=== PATIENT | female | born 1985 | race Caucasian/White ===

== ENCOUNTER 2017-01-13 14:09 | Emergency (ER) | payer MEDICAID ==
[2017-01-13 14:29] VITALS: BP 145/93; PULSE 83; RESP 16; TEMP 98.2; O2SAT 98
[2017-01-13] MEDS ORDERED: Naproxen 550 mg Tab PO STA (14:37)
[2017-01-13] MEDS ORDERED: Naproxen 550 mg Tab PO ONE (14:45)
--- NOTE | 2017-01-13 15:06 | C.PDOC ---
History Of Present Illness 31 y/o female presents to ED with complaints of left knee pain since this morning. Patient states she was getting into car when she heard a crack and reports pain is worse with movement. Patient denies change in sensation, direct trauma, weakness, numbness, other injuries or any other complaints at this time. Time Seen by Provider: 01/13/17 14:23 Chief Complaint (Nursing): Lower Extremity Problem/Injury History Per: Patient History/Exam Limitations: no limitations Onset/Duration Of Symptoms: Hrs Current Symptoms Are (Timing): Still Present Past Medical History Reviewed: Historical Data, Nursing Documentation, Vital Signs Vital Signs: Last Vital Signs Temp 98.2 F 01/13/17 14:26 Pulse 83 01/13/17 14:26 Resp 16 01/13/17 14:26 BP 145/93 H 01/13/17 14:26 Pulse Ox 98 01/13/17 16:14 - Medical History PMH: Anxiety, Depression Family History: States: Unknown Family Hx - Social History Hx Tobacco Use: Yes Hx Alcohol Use: No Hx Substance Use: No - Immunization History Hx Tetanus Toxoid Vaccination: No Hx Influenza Vaccination: Yes Hx Pneumococcal Vaccination: No Review Of Systems Except As Marked, All Systems Reviewed And Found Negative. Musculoskeletal: Positive for: Leg Pain Skin: Negative for: Rash Neurological: Negative for: Weakness, Numbness Physical Exam - Physical Exam Appears: Non-toxic, No Acute Distress Skin: Normal Color, Warm, Dry, No Rash Head: Atraumatic, Normacephalic Eye(s): bilateral: Normal Inspection, EOMI Nose: Normal Oral Mucosa: Moist Neck: Normal ROM Chest: Symmetrical Respiratory: No Accessory Muscle Use Extremity: Normal ROM, Tenderness (To medial aspect of left knee), No Calf Tenderness, Capillary Refill (<2 seconds), No Deformity, No Swelling Extremity: Bilateral: Normal ROM Pulses: Left Dorsalis Pedis: Normal, Right Dorsalis Pedis: Normal Neurological/Psych: Oriented x3, Normal Speech, Normal Motor, Normal Sensation ED Course And Treatment O2 Sat by Pulse Oximetry: 98 (RA) Pulse Ox Interpretation: Normal Progress Note: Xray of left knee. Knee brace was applied by RN and instructed to follow up with Ortho in 1-2 days. Reevaluation Time: 14:50 (On reassessment, patient is resting comfortably, and is in no acute distress. Patient was instructed to follow up with physician/ clinic in 1-2 days for further evaluation.) Reassessment Condition: Improved Disposition - Disposition Referrals: Zoran Diego III, MD [Staff Provider] - Disposition: HOME/ ROUTINE Disposition Time: 15:05 Condition: STABLE Additional Instructions: Follow up with primary medical doctor in 1-3 days without fail for further evaluation. Take medications as prescribed. Return to the emergency department at any time if symptoms persist or worsen. Prescriptions: Naproxen [Naprosyn] 1 tab PO BID PRN #20 tab PRN Reason: Pain Instructions: Knee Sprain (ED) Forms: stickK (Nepalese) - Clinical Impression Clinical Impression: Knee sprain - Scribe Statement The provider has reviewed the documentation as recorded by the Jessica Francis All medical record entries made by the Johnnieibkati were at my direction and personally dictated by me. I have reviewed the chart and agree that the record accurately reflects my personal performance of the history, physical exam, medical decision making, and the department course for this patient. I have also personally directed, reviewed, and agree with the discharge instructions and disposition.
--- NOTE | 2017-01-13 15:07 | RAD ---
PROCEDURE: Left Knee Radiographs. HISTORY: COMPARISON: None available. FINDINGS: BONES: No acute displaced fracture. JOINTS: No dislocation. JOINT EFFUSION: No significant joint effusion. OTHER FINDINGS: None. IMPRESSION: No acute displaced fracture, dislocation, or significant joint effusion identified. If symptoms persist, or if there is continued clinical concern, x-ray follow-up in 7-10 days should be considered.
== END 2017-01-13 15:14 | disposition home or self-care (01) ==
LOC: C.ER 14:09
DX: S83.92XA Sprain of unspecified site of left knee, initial encounter (principal); X50.0XXA Overexertion from strenuous movement or load, initial encounter; Y93.89 Activity, other specified; Y92.89 Other specified places as the place of occurrence of the external cause

== ENCOUNTER 2017-11-11 11:41 | Emergency (ER) | payer MEDICAID ==
[2017-11-11 11:47] VITALS: TEMP 98.5
[2017-11-11] MEDS ORDERED: Sodium Chloride 0.9% 1,000 ML IV ONE (12:19)
--- NOTE | 2017-11-11 12:42 | C.PDOC ---
History Of Present Illness <NikoAshtyn L - Last Filed: 11/11/17 17:21> <Leonardo Koroma - Last Filed: 11/13/17 14:45> 32 y/o female A3 currently 7 weeks presents to ED with complaints of abdominal pain, back pain and intermittent vaginal bleeding for 2 weeks worse for 2 days. Patient states she had an Ultrasound at 5 weeks and no pole was noted, denies fever, chills, vomiting or any other complaints at this time. LMP 09/22/17 (Ashtyn Pope) History Per: Patient History/Exam Limitations: no limitations Onset/Duration Of Symptoms: Days Current Symptoms Are (Timing): Still Present Quality Of Discomfort: "Pain" <Ashtyn Pope - Last Filed: 11/11/17 17:21> <Leonardo Koroma - Last Filed: 11/13/17 14:45> Time Seen by Provider: 11/11/17 12:05 Chief Complaint (Nursing): Female Genitourinary Past Medical History Reviewed: Historical Data, Nursing Documentation, Vital Signs - Medical History PMH: Anxiety, Depression Surgical History: No Surg Hx Family History: States: No Known Family Hx - Social History Hx Tobacco Use: Yes Hx Alcohol Use: No Hx Substance Use: No - Immunization History Hx Tetanus Toxoid Vaccination: No Hx Influenza Vaccination: Yes Hx Pneumococcal Vaccination: No <NikoErnieAshtyn L - Last Filed: 11/11/17 17:21> Vital Signs: Last Vital Signs Temp 98.5 F 11/11/17 11:44 Pulse 71 11/11/17 14:50 Resp 18 11/11/17 15:37 BP 115/79 11/11/17 14:50 Pulse Ox 98 11/11/17 17:24 Review Of Systems Constitutional: Negative for: Fever, Chills Gastrointestinal: Positive for: Abdominal Pain. Negative for: Nausea, Vomiting Genitourinary: Positive for: Vaginal Bleeding. Negative for: Dysuria Musculoskeletal: Positive for: Back Pain Neurological: Negative for: Weakness, Numbness <NikoAshtyn L - Last Filed: 11/11/17 17:21> Physical Exam - Physical Exam Appears: Non-toxic, No Acute Distress Skin: Warm, Dry, No Rash Head: Atraumatic, Normacephalic Eye(s): bilateral: Normal Inspection Oral Mucosa: Moist Neck: Normal ROM, Supple Cardiovascular: Rhythm Regular Respiratory: Normal Breath Sounds, No Rales, No Rhonchi, No Wheezing Gastrointestinal/Abdominal: Soft, No Tenderness, No Guarding, No Rebound Back: No CVA Tenderness, No Paraspinal Tenderness Neurological/Psych: Oriented x3, Normal Speech, Normal Cognition <NikoAshtyn L - Last Filed: 11/11/17 17:21> ED Course And Treatment - Laboratory Results Result Diagrams: 11/11/17 12:43 11/11/17 12:43 O2 Sat by Pulse Oximetry: 98 (RA) Pulse Ox Interpretation: Normal - CT Scan/US OB transvaginal US Other Rad Studies (CT/US): Read By Radiologist, Radiology Report Reviewed CT/US Interpretation: Pelvic ultrasound. History: Pelvic pain and bleeding. Comparison: None available. Technique: Multi-echo multiplanar sequences were performed through the pelvis utilizing transvaginal technique. Findings: Uterus: 9.8 x 5.9 x 6.7 centimeters. Heterogeneous echotexture. Anteverted. Cervix measures 4.3 centimeters. Intrauterine with intrauterine gestational sac measuring 3.3 centimeters corresponding to a gestational age of 8 weeks and 3 days. Yolk sac identified. [place]-rump length measures 1.4 centimeters corresponding to a gestational age of 7 weeks and 5 days. heart rate of 153 beats per minute. No free fluid in the pelvic cul-de-sac. Right ovary: 2.4 x 1.8 x 1.7 centimeters. Normal flow. Left ovary: 2.4 x 1.6 x 2.3 centimeters. Normal flow. Impression: Intrauterine corresponding to a gestational age of approximately 7 weeks and 5 days by crown- rump length of 1.4 centimeters. heart rate of 153 beats per minute. Limited 1st trimester ultrasound for viability purposes only. Continued interval followup with serial ultrasound, serial HCG levels, and gynecological consultation would be helpful if clinically indicated. <Ashtyn Pope - Last Filed: 11/11/17 17:21> - Laboratory Results Result Diagrams: 11/11/17 12:43 11/11/17 12:43 <Leonardo Koroma - Last Filed: 11/13/17 14:45> Medical Decision Making: Impression: patient with pain and spotting Plan: * Beta HCG * Blood work * UA * IV fluids * Trans vaginal US Progress: Labs reviewed. BHCG [place] [address] and Ultrasound shows Intrauterine corresponding to a gestational age of approximately 7 weeks and 5 days by crown-rump length of 1.4 centimeters. heart rate of 153 beats per minute. Patient remained afebrile laying comfortably on stretcher and in no distress. She reports no pain on reassessment. Vital signs stable. Discussed results of labs and ultrasound findings with the patient and provide copy of the results. Patient feels comfortable going home and will be discharged. 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 Instructed to return to ER if symptoms worsen or new symptoms arise. (Ashtyn Pope) Disposition Counseled Patient/Family Regarding: Diagnosis, Need For Followup - Disposition Disposition Time: 15:25 - POA Present On Arrival: None <Ashtyn Pope - Last Filed: 11/11/17 17:21> <Leonardo Koroma - Last Filed: 11/13/17 14:45> - [facility]position [facility] Disposition: HOME/ ROUTINE Condition: GOOD Additional Instructions: Your BHCG [place] [address] and Ultrasound shows Intrauterine corresponding to a gestational age of approximately 7 weeks and 5 days with heart rate of 153 beats per minute. Follow up with your ob.transformation coach in one week Instructions: Threatened Miscarriage (DC) Forms: gridComm (Luxembourger) - Clinical Impression Clinical Impression: Threatened - PA / HEAT AND FROST INSULATOR / Resident Statement MD/DO has reviewed & agrees with the documentation as recorded. - Scribe Statement The provider has reviewed the documentation as recorded by the Scribe <Ashtyn Pope - Last Filed: 11/11/17 17:21> <Leonardo Koroma - Last Filed: 11/13/17 14:45> - Scribe Statement Becky Francis All medical record entries made by the Scribe were at my direction and personally dictated by me. I have reviewed the chart and agree that the record accurately reflects my personal performance of the history, physical exam, medical decision making, and the department course for this patient. I have also personally directed, reviewed, and agree with the discharge instructions and disposition. (Ashtyn Pope)
[2017-11-11 12:48] LABS: BASO # 0.1 K/uL (0.0-0.2); BASO % 0.5 % (0.0-2.0); EOS # 0.3 K/uL (0.0-0.7); EOS % 2.5 % (0.0-4.0); HEMOGLOBIN 12.8 g/dL (11.0-16.0); LYMPH # 2.2 K/uL (1.0-4.3); MEAN CELL VOLUME 93.8 fL (81.0-99.0); MEAN CORPUSCULAR HEMOGLOBIN 32.7 pg (27.0-31.0); MEAN CORPUSCULAR HGB CONC 34.8 g/dL (33.0-37.0); MONO % 8.5 % (0.0-10.0); NEUT # 7.7 K/uL (1.8-7.0); NEUT % 68.5 % (50.0-75.0); RBC 3.92 Mil/uL (3.80-5.20); RED CELL DISTRIBUTION WIDTH 12.9 % (11.5-14.5); WHITE BLOOD COUNT 11.2 K/uL (4.8-10.8)
[2017-11-11] MEDS ORDERED: Sodium Chloride 0.9% 1,000 ML ONE (12:48)
[2017-11-11 12:54] LABS: HCG,QUALITATIVE URINE POSITIVE (NEGATIVE)
[2017-11-11 12:58] LABS: SQUAMOUS EPITHIAL 2 /hpf (0-5); URINE AMORPHOUS SEDIMENT FEW /ul (<OCC); URINE BILIRUBIN NEGATIVE (NEGATIVE); URINE BLOOD NEGATIVE (NEGATIVE); URINE CLARITY Hazy (Clear); URINE COLOR Yellow (YELLOW); URINE GLUCOSE (UA) NORMAL (Normal); URINE LEUKOCYTE ESTERASE TRACE Leu/uL (Negative); URINE PROTEIN NEGATIVE (NEGATIVE); URINE UROBILINOGEN NORMAL mg/dL (0.2-1.0)
[2017-11-11 13:02] LABS: ALB/GLOB RATIO 1.3 (1.0-2.1); ALBUMIN 3.7 g/dL (3.5-5.0); ALT/SGPT 19 U/L (9-52); AST/SGOT 25 U/L (14-36); BLOOD UREA NITROGEN 6 mg/dL (7-17); CALCIUM 8.6 mg/dl (8.6-10.4); GFR AFRICAN-AMERICAN > 60; GFR NON-AFRICAN AMERICAN > 60
[2017-11-11 14:50] VITALS: BP 115/79; PULSE 71; RESP 18
--- NOTE | 2017-11-11 15:00 | US ---
Pelvic ultrasound History: Pelvic pain and bleeding. Comparison: None available. Technique: Multi-echo multiplanar sequences were performed through the pelvis utilizing transvaginal technique. Findings: Uterus: 9.8 x 5.9 x 6.7 centimeters. Heterogeneous echotexture. Anteverted. Cervix measures 4.3 centimeters. Intrauterine with intrauterine gestational sac measuring 3.3 centimeters corresponding to a gestational age of 8 weeks and 3 days. Yolk sac identified. [place]-rump length measures 1.4 centimeters corresponding to a gestational age of 7 weeks and 5 days. heart rate of 153 beats per minute. No free fluid in the pelvic cul-de-sac. Right ovary: 2.4 x 1.8 x 1.7 centimeters. Normal flow. Left ovary: 2.4 x 1.6 x 2.3 centimeters. Normal flow. Impression: Intrauterine corresponding to a gestational age of approximately 7 weeks and 5 days by crown-rump length of 1.4 centimeters. heart rate of 153 beats per minute. Limited 1st trimester ultrasound for viability purposes only. Continued interval followup with serial ultrasound, serial HCG levels, and gynecological consultation would be helpful if clinically indicated.
[2017-11-11 15:22] VITALS: O2SAT 98
== END 2017-11-11 15:40 | disposition home or self-care (01) ==
LOC: C.ER 11:41
DX: O20.0 Threatened abortion (principal); Z3A.01 Less than 8 weeks gestation of pregnancy
CPT/HCPCS: 76817; 80053; 81001; 84702; 84703; 85025; 86850; 86900; 96360; 99285; J7030

== ENCOUNTER 2018-04-12 00:01 | Emergency (ER) | payer MEDICAID ==
[2018-04-12 00:20] VITALS: BMI 28.8
[2018-04-12 00:39] LABS: SQUAMOUS EPITHIAL 15 /hpf (0-5); URINE BILIRUBIN NEGATIVE (NEGATIVE); URINE BLOOD NEGATIVE (NEGATIVE); URINE CLARITY Hazy (Clear); URINE COLOR Yellow (YELLOW); URINE GLUCOSE (UA) NORMAL (Normal); URINE LEUKOCYTE ESTERASE TRACE Leu/uL (Negative); URINE PROTEIN NEGATIVE (NEGATIVE)
--- NOTE | 2018-04-12 01:20 | OBHP ---
Datetime: 04/12/2018 01:09 IP Admit Plan: Discharge home Admit Comment, IP Provider: 32 @ 29. 3 presents today with c/o back pain that radiates down her left leg. Pain has been bothering her for months now, but she has never gone to have it evaluated . Pain is worse throughout the day after she does heavy lifting. Pt does have urinary frequency. VSS: STABLE. AFEBRILE LABS +WBC IN URINE. PLAN; 1_ POSSIBLE UTI - KEFLEX SCRIPT SENT. 2) BACK PAIN: POSSIBLE HERNIATED DISK - RECOMMENDED PT F/U WITH ORTHOPEDIC SURGEON/OR CHIROPRACTOR Pelvic Type - PN: Adequate Extremities - PN: Normal Abdomen - PN: Normal Back - PN: Normal Breast - PN: Normal Lungs - PN: Normal Heart - PN: Normal Thyroid - PN: Normal Neurologic - PN: Normal HEENT - PN: Normal General - PN: Normal IP Hx Assessment: The History has been Reviewed and is Current EGA AdmitDate IP: 29.3 Vital Signs Provider: Reviewed IP Chief Complaint: Maternal discomfort Dilatation, Provider: cl Genitourinary Exam: Normal DTRs - PN: Normal Dr Signature: Shivam NGUYỄN
[2018-04-12 04:41] VITALS: BP 138/82; PULSE 83; RESP 18; TEMP 97.6
== END 2018-04-12 01:15 | disposition home or self-care (01) ==
LOC: C.EROB 00:01
DX: O26.893 Other specified pregnancy related conditions, third trimester (principal); M54.9 Dorsalgia, unspecified; Z3A.29 29 weeks gestation of pregnancy